=== PATIENT | female | born 1965 | race Two or more races ===

== ENCOUNTER 2024-03-13 11:28 | Emergency (ER) | payer OTHER ==
[~2024-03-13] VITALS: Ht 170.2 cm; Wt 70.3 kg
[2024-03-13] MEDS ORDERED: SIMETHICONE 125 MG CAPSULE PO ONE (12:15)
[2024-03-13 13:38] LABS: HEMATOCRIT 38.7 % (36.0-45.00); HEMOGLOBIN 13.3 g/dL (12.0-15.00); MEAN CELL VOLUME 90.1 fL (80.00-100.00); MEAN CORPUSCULAR HGB CONC 34.4 g/dl (32.0-36.0); PLATELET COUNT 216 K/uL (150-450); RED BLOOD COUNT 4.29 M/uL (4.00-6.00); RED CELL DISTRIBUTION WIDTH 12.6 % (11.5-14.5)
[2024-03-13 14:10] LABS: ALBUMIN 3.8 gm/dL (3.4-5.0); BILIRUBIN TOTAL 0.42 mg/dL (0.3-1.2); CALCIUM 9.5 mg/dL (8.5-10.1); CREATININE SERUM 0.73 mg/dL (0.55-1.02); GFR 81.6; GLOBULINA 3.6 G/DL (2.4-3.5); POTASSIUM 4.57 mEq/L (3.5-5.1); TOTAL PROTEIN 7.4 gm/dL (6.4-8.2)
[2024-03-13] MEDS ORDERED: PEPCID AC20 MG PO (14:46)
== END 2024-03-13 14:52 | disposition home or self-care (01) ==
LOC: ER 11:28
PROVIDERS: General Practice
DX: R10.11 Right upper quadrant pain (principal)